=== PATIENT | female | born 1945 | race Caucasian/White ===

== ENCOUNTER 2018-05-29 07:15 | Inpatient (IN) | payer OTHER ==
[2018-05-29] MEDS ORDERED: LEVOXYL88 MCG PO (11:18)
[2018-05-29] MEDS ORDERED: TOPROL XL25 M1 PO (11:19)
[2018-05-29] MEDS ORDERED: ATORVASTATIN CA80 MG PO (11:19)
[2018-05-29] MEDS ORDERED: LISINOPRIL10 MG PO (11:19)
[2018-05-29] MEDS ORDERED: HUM (11:20)
[2018-05-29] MEDS ORDERED: GRALISE300 MG PO (11:20)
[2018-05-29] MEDS ORDERED: ALENDRONATE SOD70 MG PO (11:21)
[2018-05-29] MEDS ORDERED: MAXIMUM D310000 UNIT PO (11:22)
[2018-05-29] MEDS ORDERED: [UNRECOGNIZED DRUG - OTHER] PO (11:24)
[2018-06-04] MEDS ORDERED: PERCOCET 5-3251 EACH PO (15:45)
[2018-06-04] MEDS ORDERED: DUI500 PO (15:45)
[2018-06-04] MEDS ORDERED: ELIQUIS2.5 MG PO (15:45)
== END 2018-06-04 20:22 | DRG 470 ==
LOC: SURH 06-02 07:00 → O/R 06-02 07:51 → SURG 06-02 07:51
PROVIDERS: Orthopaedic Surgery
PROC: 0MNN0ZZ Release Right Knee Bursa and Ligament, Open Approach (ICD-10-PCS; 2018-06-02)
PROC: 0SRC0J9 Replacement of Right Knee Joint with Synthetic Substitute, Cemented, Open Approach (ICD-10-PCS; principal; 2018-06-02 07:00)
DX: M17.11 Unilateral primary osteoarthritis, right knee (principal); D62 Acute posthemorrhagic anemia; I10 Essential (primary) hypertension; E11.9 Type 2 diabetes mellitus without complications; M81.0 Age-related osteoporosis without current pathological fracture; Z79.4 Long term (current) use of insulin; E03.8 Other specified hypothyroidism

== ENCOUNTER 2019-04-23 08:45 | Inpatient (IN) | payer OTHER ==
[~2019-04-23] VITALS: Ht 154.9 cm; Wt 72.6 kg
[~2019-04-23 08:45] MED LIST: ALENDRONATE SOD70 MG PO; ATORVASTATIN CA80 MG PO; DUI500 PO; ELIQUIS2.5 MG PO; GRALISE300 MG PO; HUM; LEVOXYL88 MCG PO; LISINOPRIL10 MG PO; MAXIMUM D310000 UNIT PO; PERCOCET 5-3251 EACH PO; TOPROL XL25 M1 PO; [UNRECOGNIZED DRUG - OTHER] PO
[2019-04-29] MEDS ORDERED: PERCOCET 5-3251 EACH PO (14:42)
[2019-04-29] MEDS ORDERED: DUI500 PO (14:42)
[2019-04-29] MEDS ORDERED: ELIQUIS2.5 MG PO (14:42)
== END 2019-04-29 18:45 | DRG 470 ==
LOC: O/R 08:45 → SURG 04-27 05:55 → SURH 04-27 08:45 → SURG 04-27 14:20 → SURH 04-27 15:15 → SURG 04-27 15:51
PROVIDERS: ADMIT Orthopaedic Surgery
PROC: 0MNP0ZZ Release Left Knee Bursa and Ligament, Open Approach (ICD-10-PCS; 2019-04-27)
PROC: 0SRD0J9 Replacement of Left Knee Joint with Synthetic Substitute, Cemented, Open Approach (ICD-10-PCS; principal; 2019-04-27 15:15)
DX: M17.12 Unilateral primary osteoarthritis, left knee (principal); D62 Acute posthemorrhagic anemia; M22.12 Recurrent subluxation of patella, left knee; M81.0 Age-related osteoporosis without current pathological fracture; E03.8 Other specified hypothyroidism; E11.40 Type 2 diabetes mellitus with diabetic neuropathy, unspecified; Z79.4 Long term (current) use of insulin